=== PATIENT | female | born 1960 | race Caucasian/White ===

== ENCOUNTER 2021-08-19 17:49 | Emergency (ER) | payer OTHER ==
[~2021-08-19] VITALS: Ht 162.6 cm; Wt 64.4 kg
[2021-08-19] MEDS ORDERED: LIDO700A20 TOP (20:00)
[2021-08-19] MEDS ORDERED: Cyclobenzaprine10 MG PO (20:00)
== END 2021-08-19 20:34 | disposition home or self-care (01) ==
LOC: ER 17:49
DX: M54.42 Lumbago with sciatica, left side (principal)
CPT/HCPCS: 96372; 99282-25; A9270; J1885

== ENCOUNTER 2021-10-10 19:57 | Emergency (ER) | payer OTHER ==
[~2021-10-10] VITALS: Ht 157.5 cm; Wt 61.2 kg
[~2021-10-10 19:57] MED LIST: Cyclobenzaprine10 MG PO; LIDO700A20 TOP
[2021-10-10] MEDS ORDERED: TRAM50 PO (21:02)
[2021-10-10] MEDS ORDERED: NAPR500 PO (21:02)
[2021-10-10] MEDS ORDERED: LIDO700A20 TOP (21:02)
== END 2021-10-10 21:40 | disposition home or self-care (01) ==
LOC: ER 19:57
DX: M48.56XA Collapsed vertebra, not elsewhere classified, lumbar region, initial encounter for fracture (principal); M48.061 Spinal stenosis, lumbar region without neurogenic claudication; Z79.899 Other long term (current) drug therapy; Z88.5 Allergy status to narcotic agent
CPT/HCPCS: J1885; J2270; J2405

== ENCOUNTER 2022-03-02 10:52 | Day surgery (SDC) | payer OTHER ==
[~2022-03-02] VITALS: Ht 152.4 cm; Wt 56.0 kg
[~2022-03-02 10:52] MED LIST changes: +NAPR500 PO; +TRAM50 PO
[2022-03-02] MEDS ORDERED: LOSA25 (11:16)
[2022-03-02] MEDS ORDERED: METF500 (11:16)
--- NOTE | 2022-03-02 12:57 | NUR ---
03/02/22 Mehdi Montero 5MLS LIDOCAINE 2% WITH EPI 1:100,000 MIXED 1:1 WITH 5MLS NACL TO CREATE A SOLUTION LIDOCAINE 1% WITH EPI 1:200,000.
--- NOTE | 2022-03-02 16:39 | NUR ---
03/02/22 1639 Jayson Sullivan PT VOMITED ONCE 20ML YELLOW EMESIS. SHE WAS MEDICATED WITH 4MG IV ZOFRAN, PER DR. ALBRIGHT ORDERS. SHORTLY AFTER RECIEVING MEDICATION PT STATED THAT HER NAUSEA HAD RESOLVED. PT STATED THAT HER NAUSEA WAS RETURNING IMMEDIATELY PRIOR TO DISCHARGE, BUT SHE EXPRESSED READINESS TO GO HOME. SHE WAS PROVIDED AN EMESIS BAG AND LEMON DROPS TO TAKE HOME. PT REPORTED 6/10 PAIN AT THE TIME OF DISCHARGE. SHE STATED THAT AMOUNT OF PAIN WAS TOLERABLE, AND THE SHE WAS READY TO GO HOME.
== END 2022-03-02 16:18 | disposition home or self-care (01) ==
LOC: ORSCSDS 10:52
PROVIDERS: Otolaryngology
PROC: 0GBJ0ZZ Excision of Thyroid Gland Isthmus, Open Approach (ICD-10-PCS; principal; 2022-03-02 12:15)
PROC: 0GTK0ZZ Resection of Thyroid Gland, Open Approach (ICD-10-PCS; principal; 2022-03-02 12:15)
DX: C73 Malignant neoplasm of thyroid gland (principal); I10 Essential (primary) hypertension; E11.9 Type 2 diabetes mellitus without complications; Z79.84 Long term (current) use of oral hypoglycemic drugs; Z79.899 Other long term (current) drug therapy
CPT/HCPCS: 82947; J1100; J2250; J2405; J2704; J3010; J7120

== ENCOUNTER 2024-11-20 15:38 | Emergency (ER) | payer OTHER ==
[~2024-11-20] VITALS: Ht 157.5 cm; Wt 55.8 kg
[~2024-11-20 15:38] MED LIST changes: +LOSA25; +METF500
[2024-11-20] MEDS ORDERED: EpiNEPhrine 1 MG/1 ML 1ML Vial IM ONE (16:00)
[2024-11-20 16:24] LABS: BASOPHILS ABSOLUTE AUTO 0.07 K/mm3 (0.00-0.23); BASOPHILS PERCENT AUTO 1 % (0-2); EOSINOPHILS ABSOLUTE AUTO 0.52 K/mm3 (0.00-0.68); EOSINOPHILS PERCENT AUTO 4 % (0-6); Hematocrit 38.7 % (33.0-51.0); Hemoglobin 13.1 g/dL (11.5-16.0); IMMATURE GRAN ABSOLUTE AUTO 0.04 K/mm3 (0.00-0.10); IMMATURE GRAN PERCENT AUTO 0 % (0-1); LYMPHOCYTES ABSOLUTE AUTO 3.33 K/mm3 (0.84-5.20); LYMPHOCYTES PERCENT AUTO 28 % (21-46); MONOCYTES ABSOLUTE AUTO 0.63 K/mm3 (0.16-1.47); MONOCYTES PERCENT AUTO 5 % (4-13); Mean Corpuscular HGB Conc 33.9 g/dL (31.5-36.5); Mean Corpuscular Volume 90 fL (80-100); NEUTROPHILS ABSOLUTE AUTO 7.50 K/mm3 (1.96-9.15); NEUTROPHILS PERCENT AUTO 62 % (41-73); NRBC ABSOLUTE 0.00 K/mm3 (0.00-0.02); NRBC Auto 0.0 /100 WBC (0.0-0.2); Platelet Count 315 K/mm3 (150-400); RDW Coefficient Variation 13.0 % (11.7-14.2); RDW Standard Deviation 42.7 fL (35.1-46.3)
[2024-11-20 17:01] LABS: Anion Gap 11.0 mmol/L (3-11); Blood Urea Nitrogen 18.0 mg/dL (8-24); CO2, Blood 23.0 mmol/L (21-32); Calcium, Blood 9.2 mg/dL (8.5-10.1); Chloride, Blood 106.0 mmol/L (98-108); Creatinine, Blood 0.59 mg/dL (0.40-1.00); Glucose, Blood 100.0 mg/dL (70-99); Potassium, Blood 3.9 mmol/L (3.5-5.5); Sodium, Blood 136.0 mmol/L (136-145)
[2024-11-20 18:45] VITALS: BP 131/73
[2024-11-20] MEDS ORDERED: EPIPEN0.3 MG/0.3 IM (18:45)
== END 2024-11-20 19:08 | disposition home or self-care (01) ==
LOC: ER 15:38
PROVIDERS: Emergency Medicine
DX: R22.0 Localized swelling, mass and lump, head (principal); T45.1X5A Adverse effect of antineoplastic and immunosuppressive drugs, initial encounter; Z88.5 Allergy status to narcotic agent; Z79.84 Long term (current) use of oral hypoglycemic drugs; Z79.899 Other long term (current) drug therapy
CPT/HCPCS: 80048; 85025; 96372; 99285-25; J0165